=== PATIENT | male | born 1945 | race Caucasian/White ===

== ENCOUNTER 2019-12-13 19:37 | Inpatient (IN) | payer MEDICARE, OTHER, MEDICAID ==
[~2019-12-13] VITALS: Ht 172.7 cm; Wt 102.3 kg
[2019-12-13] MEDS ORDERED: METO50TA16 PO (19:48)
[2019-12-13] MEDS ORDERED: POTA10CA43 PO (19:48)
[2019-12-13] MEDS ORDERED: LOPE2CAP PO (19:48)
[2019-12-13] MEDS ORDERED: GABA800T11 PO (19:48)
[2019-12-13] MEDS ORDERED: CLOP75TA33 PO (19:48)
[2019-12-13] MEDS ORDERED: TEMA15CA PO (19:48)
[2019-12-13] MEDS ORDERED: ENAL20TA PO (19:48)
[2019-12-13] MEDS ORDERED: FURO40TA5 PO (19:48)
[2019-12-13] MEDS ORDERED: ALLO100T56 PO (19:48)
[2019-12-13] MEDS ORDERED: GLIP5TAB13 PO (19:48)
[2019-12-13] MEDS ORDERED: ROSU10TA2 PO (19:48)
--- NOTE | 2019-12-13 19:53 | NUR ---
Called into room by ED MD MENDIETA. Per MD orders pt placed on BIPAP settings IPAP 12, EPAP 6, FIO2-40% and set resp. rate 14. Also resp neb tx adm'd at this time.
[2019-12-13] MEDS ORDERED: ALBUTEROL SULFATE 2.5 MG/ 0.5 ML NEBU ONE (19:56)
[2019-12-13] MEDS ORDERED: IPRATROPIUM BROMIDE 0.5 MG/2.5 ML NEBU ONE (19:56)
[2019-12-13] MEDS ORDERED: ALBUTEROL SULFATE 2.5 MG/3 ML NEBU NEB ONE (20:00)
[2019-12-13] MEDS ORDERED: IPRATROPIUM BROMIDE 0.5 MG/2.5 ML NEBU NEB ONE (20:00)
[2019-12-13 20:02] LABS: BASOPHILS % (AUTO) 0.2 % (0.0-2.0); EOSINOPHILS # (AUTO) 0.3 K/uL (0.0-0.7); EOSINOPHILS % (AUTO) 2.8 % (0.0-7.0); HEMATOCRIT 39.2 % (36.7-47.1); HEMOGLOBIN 12.8 g/dL (12.5-16.3); LYMPHOCYTES # (AUTO) 1.7 K/uL (20.0-40.0); LYMPHOCYTES % (AUTO) 15.9 % (20.5-51.5); MEAN CORPUSCULAR HEMOGLOBIN 30.5 uug (23.8-33.4); MEAN CORPUSCULAR HGB CONC 33 g/dL (32.5-36.3); MEAN CORPUSCULAR VOLUME 93.7 fL (73.0-96.2); MONOCYTES # (AUTO) 0.8 K/uL (2.0-10.0); MONOCYTES % (AUTO) 7.6 % (0.0-11.0); NEUTROPHILS # (AUTO) 7.8 K/uL (1.8-8.9); NEUTROPHILS % (AUTO) 73.5 % (38.5-71.5); PLATELET COUNT (AUTO) 296 K/uL (152-348); RED BLOOD CELL COUNT(AUTO) 4.19 MIL/uL (4.06-5.63); WHITE BLOOD COUNT (AUTO) 10.6 K/uL (3.6-10.2)
[2019-12-13 20:09] LABS: CARBON DIOXIDE 26 mmol/L (21-32); CHLORIDE 104 mmol/L (98-107); CREATININE 1.7 mg/dL (0.6-1.3); POTASSIUM 4.7 mmol/L (3.5-5.1); UREA NITROGEN, BLOOD 48 mg/dL (7-18)
[2019-12-13 20:10] LABS: GLUCOSE 325 mg/dL (74-106)
[2019-12-13 20:21] LABS: ALANINE AMINOTRANSFERASE 23 U/L (16-63); ALKALINE PHOSPHATASE 165 U/L (50-136); ASPARTATE AMINOTRANSFERASE 15 U/L (15-37); BILIRUBIN,DIRECT 0.1 mg/dL (0.0-0.2); BILIRUBIN,TOTAL 0.4 mg/dL (0.2-1.0); TOTAL PROTEIN, SERUM 7.8 g/dL (6.4-8.2)
--- NOTE | 2019-12-13 20:26 | NUR ---
Patient in bed, no acute distress noted. SaO2 @ 100%
[2019-12-13] MEDS ORDERED: FUROSEMIDE 40 MG/4 ML VIAL IV ONE (20:45)
[2019-12-13] MEDS ORDERED: NITROGLYCERIN 0.4 MG/TAB BOTTLE SL ONE (21:00)
[2019-12-13 21:06] LABS: *BILIRUBIN,URIN NEGATIVE (NEGATIVE); *BLOOD, URINE 1+ (NEGATIVE); *CLARITY,URINE CLEAR (CLEAR); *KETONES,URINE NEGATIVE (NEGATIVE); *UROBILINOGEN,URINE 0.2 E.U./dl (NORMAL); LEUKOCYTE ESTERASE ,URINE NEGATIVE (NEGATIVE); NITRITE, URINE NEGATIVE (NEGATIVE); UGLUCOSE 3+ (NEGATIVE)
[2019-12-13 21:30] VITALS: BP 117/57
--- NOTE | 2019-12-13 21:34 | NUR ---
Report given to Tere PANCHAL on Tele. Pt. admitted to Tele , under care of David Steele. Belongs List completed
[2019-12-13 21:37] LABS: *COLOR,URINE LIGHT YELLOW (YELLOW)
[2019-12-13 21:39] LABS: MUCUS,URINE FEW /LPF (0-FEW); WBC,URINE 0-3 /HPF (0-3)
--- NOTE | 2019-12-13 21:50 | NUR ---
ADMITTED A 74 YEARS OLD PATIENT WITH DIAGNOSIS OF CHF EXACERBATION. PATIENT AAOX4. IN NO ACUTE DISTRESS. NOTED WITH MILS SOB ON EXERTION. ON O2 AT 2LPM VIA NC IN PLACE. O2 SAT AT 98% ON ADMISSION. DENIES ANY KIND OF PAIN. ABLE TO MAKE NEEDS KNOWN. NSR ON TELE AT 80/MIN. IV SITE ON LEFT AC INTACT AND PATENT. ROUTINE ADMISSION CARE DONE. PLAN OF CARE INITIATED. SAFETY MEASURE INITIATED AND CALL [facility] WITHIN REACHED. CONTINUE TO MONITOR.
[2019-12-13] MEDS ORDERED: MAGNESIUM HYDROXIDE 30 ML LIQUID UDC PO PRN (22:00)
[2019-12-13] MEDS ORDERED: HYDROCODONE/APAP 5-325MG TABLET PO PRN (22:00)
[2019-12-13] MEDS ORDERED: MORPHINE SULFATE 2 MG/1 ML DISP.SYRIN IV PRN (22:00)
[2019-12-13] MEDS ORDERED: ZOLPIDEM 5 MG TABLET PO PRN (22:00)
[2019-12-13] MEDS ORDERED: ALBUTEROL SULFATE 2.5 MG/3 ML NEBU NEB PRN (22:00)
[2019-12-13] MEDS ORDERED: DEXTROSE 50% 50 ML DISP.SYRIN IV PRN (22:00)
[2019-12-13] MEDS ORDERED: Medication Not On Formulary EA (Gabapentin 800 MG) PO SCH (22:00)
[2019-12-13] MEDS ORDERED: IPRATROPIUM BROMIDE 0.5 MG/2.5 ML NEBU NEB PRN (22:00)
[2019-12-13] MEDS ORDERED: Z GUARD REMEDY PASTE 57 GM TUBE TOP PRN (22:00)
[2019-12-13] MEDS ORDERED: ONDANSETRON 4 MG/2 ML VIAL IV PRN (22:00)
--- NOTE | 2019-12-13 22:45 | NUR ---
SHIV/AJ CALLED WITH CRITICAL TROPONIN LEVEL OF 4.657. David HARMAN MADE AWARE AND ORDER TO DO STAT EKG AND STAT TROPONIN. ORDER READ BACK AND VERIFIED.
[2019-12-13] MEDS ORDERED: ASPIRIN 325 MG TABLET PO ONE (23:00)
[2019-12-13] MEDS: GABAPENTIN 400 MG CAPSULE PO SCH (23:03)
--- NOTE | 2019-12-13 23:14 | NUR ---
STAT EKG DONE. David HARMAN MADE AWARE OF RESULT. AWAITING FOR TROPONIN LEVEL.
--- NOTE | 2019-12-13 23:34 | NUR ---
LAB/[facility] CALLED WITH CRITICAL TROPONIN LEVEL OF 8.498. INFORMED BULLDOZER ENGINEER David MONROE AND ORDER TO START HEPARIN DRIP AND INFORM CARDIOLOGY TURBINE ENGINE ASSEMBLER.
--- NOTE | 2019-12-13 23:35 | NUR ---
TELEPHONE CALL TO CARDIOLOGY COMPUTED TOMOGRAPHY SCANNER OPERATOR, DR. ASH. AWAITING FOR RETURN CALL.
[2019-12-14] MEDS ORDERED: HEPARIN/D5W DRIP 500 ML IV PRN
--- NOTE | 2019-12-14 | NUR ---
RECEIVED CALL BACK FROM CARDIAC REHABILITATION PROGRAM DIRECTOR DR CADENA AND INFORMED OF PATIENT TROPONIN LEVEL AND ORDER TO START HEPARIN DRIP PER MANAGING COGNITIVE ENGINEER David MONROE DR AGREED WITH PLAN TO START HEPARIN DRIP AND ORDER TO MOVE NEXT TROPONIN LEVEL FOR 0600 INSTEAD OF 0359. ORDER CARRIED OUT.
[2019-12-14 00:02] LABS: ABG BASE EXCESS -4.6 mmol/L; ABG HCO3 21.7 mmol/L; ABG PCO2 44.9 mmHg (35.0-45.0); ABG PH 7.302 (7.350-7.450); ABG PO2 158.9 mmHg (75.0-100.0); ABG SITE LEFT RADIAL; ABG TOTAL HEMOGLOBIN 12.4 G/dL (13.5-18.0); COHb 0.8 % (0.5-1.5); MetHb 0.3 % (0.0-1.5); O2Hb 97.4 % (94.0-97.0)
[2019-12-14 00:38] VITALS: BP 122/44
[2019-12-14] MEDS ORDERED: HEPARIN SODIUM,PORCINE 5,000 UNITS/ML VIAL IV ONE (01:00)
[2019-12-14] MEDS: HEPARIN/D5W DRIP 500 ML IV PRN ×2 (01:07→21:32)
[2019-12-14 05:35] VITALS: BP 101/46
--- NOTE | 2019-12-14 05:46 | NUR ---
PATIENT AAOX4. IN NO ACUTE DISTRESS. ON O2 AT 2LPM VIA NC IN PLACE. O2 SAT AT 98%. DENIES ANY PAIN. NEEDS ATTENDED TO AND MET. NSR ON TELE AT 73/MIN. IV SITE ON LEFT AC INTACT AND PATENT. HEPARIN DRIP INFUSING AT 24ML/HR. SAFETY MEASURE MAINTAINED AND CALL [facility] WITHIN REACH.
[2019-12-14] MEDS: GABAPENTIN 400 MG CAPSULE PO SCH ×3 (06:03→21:26)
[2019-12-14] MEDS: PANTOPRAZOLE SODIUM 40 MG TABLET.DR PO SCH (06:03)
[2019-12-14] MEDS: BLOOD SUGAR DIAGNOSTIC 1 EACH STRIP VI SCH ×4 (06:35→21:52)
[2019-12-14 06:51] LABS: BASOPHILS % (AUTO) 0.4 % (0.0-2.0); EOSINOPHILS # (AUTO) 0.3 K/uL (0.0-0.7); EOSINOPHILS % (AUTO) 4.1 % (0.0-7.0); HEMATOCRIT 32.4 % (36.7-47.1); HEMOGLOBIN 10.9 g/dL (12.5-16.3); LYMPHOCYTES # (AUTO) 1.5 K/uL (20.0-40.0); LYMPHOCYTES % (AUTO) 17.8 % (20.5-51.5); MEAN CORPUSCULAR HEMOGLOBIN 30.6 uug (23.8-33.4); MEAN CORPUSCULAR HGB CONC 34 g/dL (32.5-36.3); MONOCYTES % (AUTO) 11.9 % (0.0-11.0); NEUTROPHILS # (AUTO) 5.6 K/uL (1.8-8.9); NEUTROPHILS % (AUTO) 65.8 % (38.5-71.5); PLATELET COUNT (AUTO) 260 K/uL (152-348); RED BLOOD CELL COUNT(AUTO) 3.56 MIL/uL (4.06-5.63); WHITE BLOOD COUNT (AUTO) 8.5 K/uL (3.6-10.2)
[2019-12-14 07:07] LABS: ALANINE AMINOTRANSFERASE 22 U/L (16-63); ALKALINE PHOSPHATASE 137 U/L (50-136); ASPARTATE AMINOTRANSFERASE 52 U/L (15-37); BILIRUBIN,TOTAL 0.5 mg/dL (0.2-1.0); CARBON DIOXIDE 33 mmol/L (21-32); CHLORIDE 104 mmol/L (98-107); CHOLESTEROL 89 mg/dL (<200); CREATININE 1.7 mg/dL (0.6-1.3); GLUCOSE 198 mg/dL (74-106); HDL CHOLESTEROL 38 mg/dL (40-60); MAGNESIUM 1.7 mg/dL (1.8-2.4); PHOSPHOROUS 3.6 mg/dL (2.5-4.9); POTASSIUM 4.6 mmol/L (3.5-5.1); TOTAL PROTEIN, SERUM 6.9 g/dL (6.4-8.2); TRIGLYCERIDES 59 MG/DL (30-150); UREA NITROGEN, BLOOD 46 mg/dL (7-18)
--- NOTE | 2019-12-14 07:18 | NUR ---
TELEPHONE CALL FROM [facility] AND REPORTED CRITICAL LAB FOR TROPONIN = 15.474. REPORTED TO ONCOMING DAY SHIFT NURSE ULI AND ULI TO CALL SOLE STAPLER WELT.
--- NOTE | 2019-12-14 07:30 | NUR ---
CALL DR CRUZ EXCHANGE IN ORDER TO INFORM OF CRITICAL LAB VALUE TROPONIN 15.474. AWAITING CALL BACK.
[2019-12-14 07:57] LABS: THYROID STIMULATING HORMONE 0.273 mIU/mL (0.358-3.740)
--- NOTE | 2019-12-14 08:00 | NUR ---
RECEIVED PT RESTING IN BED. PT DENIES CHEST PAIN OR ANY PAIN AT THIS TIME. PT ON HEP DRIP. CRITICAL LAB TROPONIN 15.[address] CRUZ. 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 NEW ORDERS GIVEN. STAT EKG. NO ACUTE DISTRESS OR SOB NOTED. PT ON O2 @ 2L/M VIA N/C WITH SATS OF 97%. BED LOCKED AND IN LOW POSITION. PT ALERT AND ORIENTED X3. PLEASANT. CALL LIGHT WITHIN REACH. PT ON TELEMETRY MONITORING WITH SINUS RHYTHM WITH ST DEPRESSION. AWARE. WILL CONTINUE TO MONITOR FOR SAFETY AND COMFORT.
[2019-12-14] MEDS: INSULIN REGULAR, HUMAN 300 UNIT/3 ML VIAL SQ PRN ×4 (08:35→21:54)
[2019-12-14] MEDS: glipiZIDE 5 MG TABLET PO SCH ×2 (08:41→18:12)
[2019-12-14] MEDS: POTASSIUM CHLORIDE 10 MEQ TAB.PRT.SR PO SCH (08:41)
[2019-12-14] MEDS: ALLOPURINOL 100 MG TABLET PO SCH (08:42)
[2019-12-14] MEDS: CLOPIDOGREL 75 MG TABLET PO SCH (08:42)
[2019-12-14] MEDS: METOPROLOL TARTRATE 50 MG TABLET PO SCH ×2 (08:43→21:00)
[2019-12-14] MEDS ORDERED: MAGNESIUM OXIDE 400 MG TABLET PO ONE (08:45)
[2019-12-14] MEDS ORDERED: FUROSEMIDE 40 MG/4 ML VIAL IV SCH ×2 (09:00→17:00)
[2019-12-14] MEDS ORDERED: ENALAPRIL 10 MG TABLET PO SCH (09:00)
[2019-12-14] MEDS ORDERED: Medication Not On Formulary EA (Enalapril Maleate 20 MG) PO SCH (09:00)
--- NOTE | 2019-12-14 09:10 | NUR ---
EKG RESULTS GIVEN TO DR TOWNSEND. PT IS MED AND DIET COMPLIANT. DENIES PAIN AT THIS TIME. [employer] SPEAKING WITH PT AT THIS TIME. NO ACUTE DISTRESS OR SOB NOTED. WILL CONTINUE TO MONITOR FOR SAFETY AND COMFORT.
[2019-12-14] MEDS ORDERED: HEPARIN SODIUM,PORCINE 5,000 UNITS/ML VIAL IV PRN (09:15)
[2019-12-14 11:12] VITALS: BP 115/61
[2019-12-14] MEDS: ASPIRIN 81 MG TAB.CHEW PO SCH (11:28)
[2019-12-14] MEDS ORDERED: ISOSORBIDE MONONITRATE 60 MG TAB.SR.24H PO SCH (11:45)
--- NOTE | 2019-12-14 12:20 | NUR ---
RECEIVED CALL FROM LAB WITH CRITICAL VALUE OF TROPONIN 13.249. INFORMED DR TOWNSEND IN HIS OFFICE. NO NEW ORDERS GIVEN.
--- NOTE | 2019-12-14 13:25 | NUR ---
BASED ON PT'S aPTT OF 41.9, HEPARIN DRIP HAS BEEN INCREASED BY 200 UNITS PER HOUR FOR A TOTAL OF 1400 UNITS PER HOUR. ORDER PLACED FOR aPTT DRAW AT 1925 PM.
[2019-12-14 15:04] VITALS: BP 98/37
[2019-12-14] MEDS: ACETAMINOPHEN 325 MG TABLET PO PRN (17:11)
--- NOTE | 2019-12-14 18:00 | NUR ---
PT RESTING COMFORTABLY IN BED. PT ALERT AND ORIENTED X3. PT PLEASANT AND COOPERATIVE. PT DENIES PAIN OR DISCOMFORT AT THIS TIME. BP ON MID 90'S AND HIGH TO LOW 40'S. DR TOWNSEND AWARE. P-ER DR TOWNSEND HELD LASIX. PER DR RANDOLPH METOPROLOL IF SBP<100. PT IS ASYMPTOMATIC. PT RECEIVING HEPARIN DRIP AT THIS TIME. WILL ENDORSE TO INCOMING SHIFT NURSE ACCORDINGLY. Addendum: 12/14/19 at 1834 by ULI TORRE RN PT WILL HAVE aPTT DRAWN AT 1925.
[2019-12-14 19:50] VITALS: BP 89/42
[2019-12-14] MEDS ORDERED: ATORVASTATIN 20 MG TABLET PO SCH ×2 (21:00)
[2019-12-14] MEDS ORDERED: Medication Not On Formulary EA (Rosuvastatin Calcium (Crestor) 10 MG) PO SCH (21:00)
[2019-12-14] MEDS ORDERED: TEMAZEPAM 15 MG CAPSULE PO SCH (21:00)
--- NOTE | 2019-12-14 21:00 | NUR ---
aPTT is 49, no change in the Heparin rate. Orders faxed to the pharmacy. No signs of bleeding noted.
--- NOTE | 2019-12-14 23:30 | NUR ---
SBP is still below 95, trending around 85, asymptomatic. Dr Mcdonald is aware, ordered 250ml of NS over 5 hours if necessary. Will start the fluids and monitor, lungs are clear on auscultation, on room air now, no distress noted.
[2019-12-15] VITALS: BP 92/36
[2019-12-15] MEDS ORDERED: IV NORMAL SALINE 250 ML IV ONE (00:30)
[2019-12-15 04:00] VITALS: BP 89/24
[2019-12-15] MEDS: GABAPENTIN 400 MG CAPSULE PO SCH ×2 (06:18→14:36)
[2019-12-15] MEDS: PANTOPRAZOLE SODIUM 40 MG TABLET.DR PO SCH (06:18)
[2019-12-15 06:33] LABS: CARBON DIOXIDE 29 mmol/L (21-32); CHLORIDE 104 mmol/L (98-107); GLUCOSE 146 mg/dL (74-106); MAGNESIUM 1.7 mg/dL (1.8-2.4); PHOSPHOROUS 3.4 mg/dL (2.5-4.9); POTASSIUM 4.9 mmol/L (3.5-5.1); UREA NITROGEN, BLOOD 51 mg/dL (7-18)
[2019-12-15] MEDS: BLOOD SUGAR DIAGNOSTIC 1 EACH STRIP VI SCH ×3 (06:33→17:01)
[2019-12-15 07:32] LABS: BASOPHILS % (AUTO) 0.3 % (0.0-2.0); EOSINOPHILS # (AUTO) 0.5 K/uL (0.0-0.7); HEMATOCRIT 31.1 % (36.7-47.1); HEMOGLOBIN 10.5 g/dL (12.5-16.3); LYMPHOCYTES # (AUTO) 2.2 K/uL (20.0-40.0); LYMPHOCYTES % (AUTO) 22.7 % (20.5-51.5); MEAN CORPUSCULAR HEMOGLOBIN 31.3 uug (23.8-33.4); MEAN CORPUSCULAR HGB CONC 34 g/dL (32.5-36.3); MEAN CORPUSCULAR VOLUME 92.5 fL (73.0-96.2); MONOCYTES # (AUTO) 1.1 K/uL (2.0-10.0); MONOCYTES % (AUTO) 11.2 % (0.0-11.0); NEUTROPHILS # (AUTO) 5.8 K/uL (1.8-8.9); NEUTROPHILS % (AUTO) 60.8 % (38.5-71.5); PLATELET COUNT (AUTO) 268 K/uL (152-348); RED BLOOD CELL COUNT(AUTO) 3.36 MIL/uL (4.06-5.63); WHITE BLOOD COUNT (AUTO) 9.5 K/uL (3.6-10.2)
--- NOTE | 2019-12-15 07:46 | NUR ---
RECEIVED PATIENT RESTING, SLEEPING IN BED. NO ACUTE DISTRESS NOTED AT THIS TIME. BED IN LOWEST POSITION, SIDE RAILS UP X2, CALL LIGHT WITHIN REACH. WILL CONTINUE TO MONITOR.
[2019-12-15] MEDS: CLOPIDOGREL 75 MG TABLET PO SCH (08:32)
[2019-12-15] MEDS: ASPIRIN 81 MG TAB.CHEW PO SCH (08:32)
[2019-12-15] MEDS: POTASSIUM CHLORIDE 10 MEQ TAB.PRT.SR PO SCH (08:32)
[2019-12-15] MEDS: ALLOPURINOL 100 MG TABLET PO SCH (08:32)
[2019-12-15] MEDS: glipiZIDE 5 MG TABLET PO SCH ×2 (08:32→17:29)
[2019-12-15] MEDS: METOPROLOL TARTRATE 50 MG TABLET PO SCH (08:33)
[2019-12-15] MEDS: ACETAMINOPHEN 325 MG TABLET PO PRN (09:21)
[2019-12-15 11:07] VITALS: BP 102/48
[2019-12-15] MEDS: INSULIN REGULAR, HUMAN 300 UNIT/3 ML VIAL SQ PRN ×2 (12:26→17:32)
[2019-12-15] MEDS: MAGNESIUM SULFATE/D5W 100 ML IV SCH ×2 (13:12→14:36)
[2019-12-15 15:18] VITALS: BP 142/37
--- NOTE | 2019-12-15 18:00 | NUR ---
DISCHARGED PATIENT TO HOME. REVIEWED D/C INSTRUCTIONS, PATIENT VERBALLY UNDERSTANDS INSTRUCTIONS. D/IV. HELPED PATIENT GET DRESSED AND STAND. ESCORTED PATIENT DOWN TO GET TAXI CAB.
== END 2019-12-15 18:00 | disposition home health service (06) | DRG 280 ==
LOC: ER 19:39 → TELE3 21:34
PROVIDERS: ADMIT Nurse Practitioner Acute Care; ATTEND Nurse Practitioner Acute Care
PROC: 5A09357 Assistance with Respiratory Ventilation, Less than 24 Consecutive Hours, Continuous Positive Airway Pressure (ICD-10-PCS; principal; 2019-12-13)
DX: I13.0 Hypertensive heart and chronic kidney disease with heart failure and stage 1 through stage 4 chronic kidney disease, or unspecified chronic kidney disease (principal); N17.0 Acute kidney failure with tubular necrosis; I21.A1 Myocardial infarction type 2; I50.23 Acute on chronic systolic (congestive) heart failure; J96.01 Acute respiratory failure with hypoxia; J96.02 Acute respiratory failure with hypercapnia; E44.1 Mild protein-calorie malnutrition; Z95.5 Presence of coronary angioplasty implant and graft; Z89.511 Acquired absence of right leg below knee; I25.118 Atherosclerotic heart disease of native coronary artery with other forms of angina pectoris; E78.5 Hyperlipidemia, unspecified; E66.9 Obesity, unspecified; Z68.34 Body mass index [BMI] 34.0-34.9, adult; E83.42 Hypomagnesemia; E11.51 Type 2 diabetes mellitus with diabetic peripheral angiopathy without gangrene; E11.40 Type 2 diabetes mellitus with diabetic neuropathy, unspecified; E11.65 Type 2 diabetes mellitus with hyperglycemia; M10.9 Gout, unspecified; E11.22 Type 2 diabetes mellitus with diabetic chronic kidney disease; N18.9 Chronic kidney disease, unspecified; Z79.02 Long term (current) use of antithrombotics/antiplatelets; Z79.84 Long term (current) use of oral hypoglycemic drugs; D72.829 Elevated white blood cell count, unspecified
CPT/HCPCS: 36415; 36600; 70030-TC; 71045; 83735; 84100; 84443; 84481; 85025; 85730; 87400; 93005; 93307; 94660; A4663; G0378; J1644; J1815; J1940; J3475; J3590; J7040; J7050; J8499